=== PATIENT | male | born 1975 | race Caucasian/White ===

== ENCOUNTER 2019-04-11 15:27 | Outpatient (REF) | payer SELFPAY ==
[2019-04-11 17:12] LABS: Estmated Average Glucose 91; Hemoglobin A1C 4.8 % (4.0-6.0)
[2019-04-11 17:49] LABS: Chol HDL Ratio 2.58 mg/dL (1.0-5.00); Cholesterol 129 mg/dL (0-200); Glucose 96 mg/dL (65-115); HDL Cholesterol 50 mg/dL (60-100); LDL Cholesterol Calculated 61 mg/dL (50-129); LDL HDL Ratio 1.22 RATIO (0.00-3.22); Triglycerides 89 mg/dL (0-150)
== END 2019-04-11 15:28 | disposition home or self-care (01) ==
LOC: LAB 15:27
PROVIDERS: Family Provider Internal Medicine; Visit Provider Dermatology
DX: Z13.9 Encounter for screening, unspecified (principal)
CPT/HCPCS: 80061; 82947; 83036

== ENCOUNTER 2021-08-12 08:38 | Outpatient (CLI) | payer OTHER, SELFPAY ==
--- NOTE | 2021-08-12 10:37 | PFTS_ITS ---
Date of Study:08/12/21 Date of Dictation: 08/14/21 MECHANICS: Prebronchodilator forced vital capacity (FVC) is normal . Prebronchodilator forced expiratory volume in one second (FEV1) is normal. FEV1/FVC is normal. There is no postbronchodilator study. FLOW VOLUME LOOP: Normal. LUNG VOLUMES: Total lung capacity (TLC) is normal. Residual volume (RV) is mildly reduced. DIFFUSING CAPACITY FOR CARBON MONOXIDE: Normal. INTERPRETATION: The Pulmonary function tests are normal. MTDD
== END 2021-08-12 08:39 | disposition home or self-care (01) ==
LOC: RT 08:43
PROVIDERS: PCP Family Medicine; Visit Provider Family Medicine
DX: R06.02 Shortness of breath (principal)
CPT/HCPCS: 94010; 94726; 94729

== ENCOUNTER → 2021-10-26 12:46 | Outpatient (BNVA) | payer OTHER, SELFPAY | PROVIDERS: PCP Family Medicine; Visit Provider Podiatrist Foot & Ankle Surgery | DX: M25.371 Other instability, right ankle (principal); M19.171 Post-traumatic osteoarthritis, right ankle and foot; M21.41 Flat foot [pes planus] (acquired), right foot; M20.21 Hallux rigidus, right foot | CPT/HCPCS: 73600; 73630; 99204; 99205 ==

== ENCOUNTER 2021-11-24 18:00 | Emergency (ER) | payer OTHER, SELFPAY ==
[2021-11-24 18:16] VITALS: BP 166/91; PULSE 67; RESP 18; TEMP 36.8; O2SAT 98; BMI 40.4
--- NOTE | 2021-11-24 19:53 | W.ED.EXTPRO ---
HPI - Extremity Problem General: Chief complaint: Extremity Injury, Upper Stated complaint: left hand finger lac Time Seen by Provider: 11/24/21 19:44 History of Present Illness: 46-year-old male patient comes in today with injury to the left index finger. Patient was using a air box tester to cut up some cardboard when it slipped causing him to lacerate the radial side of his left index finger at the PIP joint. Superficial injury noted. Patient has good range of motion of the finger. Bleeding is controlled. Patient reports his tetanus is up-to-date. Associated symptoms: Deny chest pain Review of Systems General: Reports: 10 or more systems reviewed and unremarkable except in HPI and below Card: Denies: chest pain Resp: Denies: dyspnea Musc: Reports: extremity pain Skin/Breast: Reports: new lesions Physical Exam Const: COMMON NORMALS: alert HENMT: COMMON NORMALS: normocephalic HEAD & SCALP: normocephalic Neck/C-Spine: COMMON NORMALS: full ROM Resp: COMMON NORMALS: normal respiratory effort and clear to auscultation bilaterally AUSCULTATION: clear to auscultation bilaterally Cardio: COMMON NORMALS: regular rate and regular rhythm RATE: regular rate RHYTHM: regular rhythm Back/Pelvis: COMMON NORMALS: thoracic and lumbar spine normal to inspection Extremity: LEFT UPPER EXTREMITY: Yes hand & digits (1 cm linear laceration radial side of the PIP joint left index) Left hand and digits: Yes inspection, Yes palpation and Yes ROM Neuro: SENSORIUM/ORIENTATION: Yes alert Skin: TRAUMA: laceration (Index finger left hand) linear Procedures Laceration Laceration 1: Site: hand Side (If applicable): left Size (cm): 1 Pre-repair: wound explored and irrigated extensively Skin layer closed with: other (Skin adhesive, and splint) Course Vital Signs: Vital signs: Vital Signs Temperature 98.3 F 11/24/21 18:16 Pulse Rate 67 11/24/21 18:16 Respiratory Rate 18 11/24/21 18:16 Blood Pressure 166/91 11/24/21 18:16 Pulse Oximetry 98 11/24/21 18:16 Oxygen Delivery Me thod 11/24/21 18:16 MDM - Extremity (Nontraumatic) Medical Decision Making Patient comes in for injury to the left index finger. On exam we note 1 cm laceration to the left index finger. Patient has good range of motion of the finger. Wound is well approximated when finger is straight. Differential diagnosis includes need for prophylaxis tetanus, foreign body, tendon injury, laceration. No sign of foreign body or tendon injury is noted. Patient reported that his tetanus immunization was was up-to-date. Wound was cleaned and approximated and closed with skin adhesive. Patient was then put in a finger splint for protection of the wound. Patient reported understanding of care plan need for follow-up or return to the ER. Discharge Plan Discharge Patient Disposition: Home Clinical Impression: Finger laceration Qualifiers: Encounter type: initial encounter Finger: index finger Damage to nail status: with damage Foreign body presence: without foreign body Laterality: left Qualified Code(s): S61.311A - Laceration without foreign body of left index finger with damage to nail, initial encounter Condition: Stable Prescriptions: No Action albuterol sulfate 90 mcg/actuation HFA aerosol inhaler inhalation cetirizine 10 mg tablet PO bupropion HCl 300 mg tablet extended release 24 hr PO pregabalin 100 mg capsule PO diclofenac sodium 1 % gel topical omeprazole 20 mg capsule,delayed release(DR/EC) PO cyclobenzaprine 10 mg tablet PO Discharge Orders: Discharge ED (Routine); Ordered 11/24/21 Ordered By: Michael Torres Referrals: Antonieta Cesar MD [Primary Care Provider] - Discharge Diet: Usual diet Discharge Activity: Increase activity as tolerated Patient Instructions: Finger Laceration (ED) Activity Restrictions/Additional Instructions: Keep wound clean and dry. It is important to keep the wound as dry as possible for the next 48 hours. After that avoid submerging wound into water for long periods of time. Allow the initial dressing to come off on its own. Change the dressing if it becomes wet or soiled. Use a splint for the next 7 days to allow the wound to heal. Follow-up with primary care for further instruction. Return to ED for new concerns. Coding Level of Care Code ED Color Drum Worker for Renzo Saini
== END 2021-11-24 20:23 | disposition home or self-care (01) ==
PROVIDERS: Emergency Provider Nurse Practitioner Family; PCP Family Medicine
DX: S61.311A Laceration without foreign body of left index finger with damage to nail, initial encounter (principal); W26.0XXA Contact with knife, initial encounter
CPT/HCPCS: 12001; 99282

== ENCOUNTER 2021-11-26 08:28 | Outpatient (CLI) | payer OTHER, SELFPAY ==
--- NOTE | 2021-11-26 08:45 | MR_ITS ---
WS: [id number] MRI RIGHT ANKLE NONCONTRAST TECHNIQUE: Sagittal proton density, sagittal STIR, axial proton density, axial T1, axial T2 fat sat, coronal proton density, coronal proton density fat sat, coronal T2 fat sat. CLINICAL INFORMATION: ankle pain COMPARISON: None. FINDINGS: Distal Achilles is normal in appearance. Small amount of fluid in the retrocalcaneal bursa. Small carlo nt effusion. Small ganglion cyst in the dorsal lateral gutter posterior to the talus. Normal bone mar row signal. No evidence of avascular necrosis. Normal ankle mortise. Tiny well-corticated chronic hellen earing avulsion tip of the medial malleolus. Small amount of tenosynovitis involving the tibialis pos terior, flexor digitorum longus and flexor hallucis longus. Suspected partial tear involving the tibi pb anterior distally. Small amount of associated fluid about the tibialis anterior. Diffuse soft tissue edema involving the subcutaneous soft tissues more prominent in the midfoot. Patc hy bone marrow edema involving the cuboid and cuneiforms. Bone marrow edema involving the 4th and 5th metatarsal bases. Small amount of fluid in the TMT joints. Recommend correlation for trauma with con tusion. Normal bone marrow signal in the calcaneus. Normal peroneus longus and brevis. ATF not visualized likely torn. Tibiofibular ligaments appear inta ct. Mild pes planus. Prominent plantar calcaneal spurring. Talus and subtalar joints appear normal. N o evidence of avascular necrosis. Degenerative arthritis with hypertrophic spurring at the navicular and medial cuneiform articulation. Hypertrophic spurring at the talonavicular articulation and tibial plafond anteriorly. MR/MR ankle RT wo con* [id number] IMPRESSION: 1. Suspected nondisplaced fractures involving the intermediate and lateral cun eiforms with edema. Additional edema in the cuboid. 2. Additional suspected nondisplaced fracture involving the base of the 4th me tatarsal. Small amount of edema in the base of the 5th metatarsal. Above findin gs can be further evaluated with CT for better anatomic detail. 3. Suspected partial tear involving the mid to distal tibialis anterior with e torito and tendon thickening distally. 4. Lobulated ganglion cyst in the posterior lateral gutter posterior to the ta ricardo. Measuring 2.1 x 0.8 cm 5. ATF is not visualized and likely torn. Normal tibiofibular ligaments. 6. Tiny well-corticated avulsion tip of the medial malleolus. 7. Diffuse soft tissue edema involving the dorsal midfoot soft tissues. 8. Small amount of fluid in the retrocalcaneal bursa.. 9. Tenosynovitis involving the flexor compartment tendons.
== END 2021-11-26 08:29 | disposition home or self-care (01) ==
LOC: RAD 08:29
PROVIDERS: PCP Family Medicine; Visit Provider Podiatrist Foot & Ankle Surgery
DX: M25.571 Pain in right ankle and joints of right foot (principal); M25.371 Other instability, right ankle; M19.171 Post-traumatic osteoarthritis, right ankle and foot; M65.871 Other synovitis and tenosynovitis, right ankle and foot; R60.0 Localized edema
CPT/HCPCS: 73721

== ENCOUNTER 2021-11-28 21:56 | Emergency (ER) | payer OTHER, SELFPAY ==
[2021-11-28 22:00] VITALS: BP 135/76; PULSE 77; RESP 18; TEMP 36.8; O2SAT 98; BMI 40.4
--- NOTE | 2021-11-28 22:25 | ED_ITS ---
HPI - Wound/Laceration General: Chief Complaint: Wound/Laceration Stated Complaint: left finger lac Time Seen by Provider: 11/28/21 22:22 History of Present Illness: 46-year-old male patient comes in today for injury to the left index finger. Patient was concerned because he had taken off the dressing and noted that there was blood under the Tegaderm. Patient thought it might need a stitch. Injury occurred on and patient had been seen in the ER and the wound was cleaned and glued with a Tegaderm applied afterwards. Associated symptoms: Denies fever(s) Review of Systems Const: Denies: fever(s) Card: Denies: chest pain Resp: Denies: dyspnea Skin/Breast: Reports: new lesions Physical Exam Const: COMMON NORMALS: alert HENMT: HEAD & SCALP: normal to inspection Resp: COMMON NORMALS: normal respiratory effort Cardio: COMMON NORMALS: regular rate RATE: regular rate Extremity: LEFT UPPER EXTREMITY: Yes hand & digits (Superficial laceration to the dorsal index finger, well approximated) Left hand and digits: Yes inspection (No redness or swelling) Neuro: SENSORIUM/ORIENTATION: Yes alert Skin: TRAUMA: laceration (Healing laceration left index finger) linear Course Vital Signs: Vital signs: Vital Signs Temperature 98.3 F 11/28/21 22:00 Pulse Rate 77 11/28/21 22:00 Respiratory Rate 18 11/28/21 22:00 Blood Pressure 135/76 11/28/21 22:00 Pulse Oximetry 98 11/28/21 22:00 Oxygen Delivery Me thod 11/28/21 22:00 MDM - Wound/Laceration Medical Decision Making 46-year-old male patient comes in for injury to the left index finger. Patient has a superficial wound to left index finger. Dressing was removed and noted that the wound was well approximated. Differential diagnosis wound dehiscence, wound infection, healing wound. After clean wound it was noted that the wound was healing well. Recommended patient continue with routine care, replace dressing and recommended continued use of splint for 1 more week. Patient stated understanding and agreed to plan. Discharge Plan Discharge Patient Disposition: Home Clinical Impression: Finger laceration Qualifiers: Encounter type: subsequent encounter Finger: index finger Damage to nail status: without damage Foreign body presence: without foreign body Laterality: left Qualified Code(s): S61.211D - Laceration without foreign body of left index finger without damage to nail, subsequent encounter Condition: Stable Prescriptions: No Action albuterol sulfate 90 mcg/actuation HFA aerosol inhaler inhalation cetirizine 10 mg tablet PO bupropion HCl 300 mg tablet extended release 24 hr PO pregabalin 100 mg capsule PO diclofenac sodium 1 % gel topical omeprazole 20 mg capsule,delayed release(DR/EC) PO cyclobenzaprine 10 mg tablet PO Discharge Orders: Discharge ED (Routine); Ordered 11/28/21 Ordered By: Michael Torres Referrals: Antonieta Cesar MD [Primary Care Provider] - Discharge Diet: Usual diet Discharge Activity: Increase activity as tolerated Patient Instructions: Finger Laceration (ED) Activity Restrictions/Additional Instructions: Continue with routine care. Keep wound clean and dry. Keep splint in place for at least 1 week. Follow-up with primary care for further instruction. Return to ED for new concerns. Coding Level of Care Code ED Digital Imaging Specialist for Renzo Saini
[2021-11-28 22:47] VITALS: BP 135/76; PULSE 77; RESP 18; TEMP 36.8; O2SAT 98
== END 2021-11-28 22:48 | disposition home or self-care (01) ==
PROVIDERS: Emergency Provider Nurse Practitioner Family; PCP Family Medicine
DX: S61.211A Laceration without foreign body of left index finger without damage to nail, initial encounter (principal); X58.XXXA Exposure to other specified factors, initial encounter
CPT/HCPCS: 99282

== ENCOUNTER 2021-12-06 10:37 | Outpatient (CLI) | payer OTHER, SELFPAY | END 2021-12-06 10:38 | disposition home or self-care (01) | LOC: SPT 10:38 | PROVIDERS: PCP Family Medicine; Visit Provider Podiatrist Foot & Ankle Surgery | DX: Z46.89 Encounter for fitting and adjustment of other specified devices (principal); M20.21 Hallux rigidus, right foot; S92.811D Other fracture of right foot, subsequent encounter for fracture with routine healing; X58.XXXD Exposure to other specified factors, subsequent encounter; M65.9 Synovitis and tenosynovitis, unspecified; M77.51 Other enthesopathy of right foot and ankle | CPT/HCPCS: 97760; 99214; L4361 ==

== ENCOUNTER 2021-12-16 08:30 | Outpatient (CLI) | payer OTHER, SELFPAY ==
--- NOTE | 2021-12-16 08:30 | CT_ITS ---
WS: [id number] CT scan of the right foot. Additional two-dimensional coronal and sagittal reconstruction was perform ed. MIP images were also performed. 12/16/2021 Clinical Data: foot fracture Comparison: MR right ankle, 11/26/2021, right foot, 10/26/2021. DLP: 130.[address] scans at [facility] use at least one of these dose optimization techniques: automated e xposure control; mA and/or kV adjustment per patient size (includes targeted exams where dose is matc hed to clinical indication); or iterative reconstruction. Findings: The tarsal bones appear intact without fracture. Anterior to the talotibial joint is a soft tissue ca lcification which may be from old trauma. There is a minimal spur between the navicular and the first cuneiform which was seen on initial x-ray. The intertarsal articulations are normal. The metatarsals and phalanges are unremarkable. There is a plantar spur. The soft tissues of the foot show no abnorm alities. CT/CT foot RT wo con* [id number] Impression: 1. Negative for fractures of the bones of the foot. 2. Probable osteoarthritic soft tissue calcification anterior to the talotibial joint. 3. Small spur between the navicular and first cuneiform indicating minimal oste oarthritis.
== END 2021-12-16 08:31 | disposition home or self-care (01) ==
LOC: RAD 08:31
PROVIDERS: PCP Family Medicine; Visit Provider Podiatrist Foot & Ankle Surgery
DX: M20.21 Hallux rigidus, right foot (principal)
CPT/HCPCS: 73700

== ENCOUNTER → 2022-01-04 08:22 | Outpatient (BNVA) | payer OTHER, SELFPAY | PROVIDERS: PCP Family Medicine; Visit Provider Podiatrist Foot & Ankle Surgery | DX: R00.2 Palpitations (principal); R60.9 Edema, unspecified; G47.33 Obstructive sleep apnea (adult) (pediatric); Z82.49 Family history of ischemic heart disease and other diseases of the circulatory system | CPT/HCPCS: 99204; 99214 ==

== ENCOUNTER → 2022-03-04 13:10 | Outpatient (BNVA) | payer OTHER, SELFPAY | PROVIDERS: PCP Family Medicine; Visit Provider Podiatrist Foot & Ankle Surgery | DX: S82.51XA Displaced fracture of medial malleolus of right tibia, initial encounter for closed fracture; S92.214A Nondisplaced fracture of cuboid bone of right foot, initial encounter for closed fracture; S92.001A Unspecified fracture of right calcaneus, initial encounter for closed fracture; X58.XXXA Exposure to other specified factors, initial encounter; Y93.52 Activity, horseback riding; S93.491A Sprain of other ligament of right ankle, initial encounter; M65.9 Synovitis and tenosynovitis, unspecified; M77.51 Other enthesopathy of right foot and ankle; M25.371 Other instability, right ankle | CPT/HCPCS: 73630; 99214 ==

== ENCOUNTER 2022-03-30 20:00 | Outpatient (CLI) | payer OTHER, SELFPAY | END 2022-03-30 20:01 | disposition home or self-care (01) | LOC: SLEEP 03-31 06:39 | PROVIDERS: PCP Family Medicine; Visit Provider Family Medicine | DX: G47.33 Obstructive sleep apnea (adult) (pediatric) (principal) | CPT/HCPCS: 95811 ==

== ENCOUNTER → 2022-05-02 15:03 | Outpatient (BNVA) | payer OTHER, SELFPAY | PROVIDERS: PCP Family Medicine; Visit Provider Podiatrist Foot & Ankle Surgery | DX: S82.51XA Displaced fracture of medial malleolus of right tibia, initial encounter for closed fracture (principal); M65.9 Synovitis and tenosynovitis, unspecified; S92.214A Nondisplaced fracture of cuboid bone of right foot, initial encounter for closed fracture; M77.51 Other enthesopathy of right foot and ankle; M25.371 Other instability, right ankle; X58.XXXA Exposure to other specified factors, initial encounter | CPT/HCPCS: 99213 ==

== ENCOUNTER 2022-10-13 12:19 | Emergency (ER) | payer OTHER, SELFPAY ==
[2022-10-13 12:27] VITALS: BMI 47.0
[2022-10-13 12:29] VITALS: BP 152/87; PULSE 74; RESP 16; TEMP 37.1; O2SAT 97
--- NOTE | 2022-10-13 14:04 | ED_ITS ---
HPI - Fall General: Chief Complaint: Fall Stated Complaint: fall / hit head Time Seen by Provider: 10/13/22 13:59 History of Present Illness: Patient presents to the ER for evaluation after falling at work. Patient said he hit his left elbow left shoulder left knee and left side of his head after slipping and falling on the tile floor. Patient denies any loss of consciousness. Patient has good range of motion with all extremities patient is able to walk on the leg. Review of Systems General: Reports: 10 or more systems reviewed and unremarkable except in HPI and below Physical Exam Const: COMMON NORMALS: no acute distress, average body habitus, patient oriented x3, no limitations, healthy appearing, alert and well nourished HENMT: COMMON NORMALS: normocephalic, atraumatic, hearing grossly normal bilaterally, external ears normal, Normal external nose present and moist oral mucous membranes HEAD & SCALP: normocephalic and atraumatic NOSE: Normal external nose present EXTERNAL EAR: Yes external ears normal Eye: COMMON NORMALS: Equal, round and reactive pupils present, EOMs intact bilaterally, conjunctivae normal and no scleral icterus CONJUNCTIVA: Yes conjunctivae normal PUPIL: Yes Equal, round and reactive pupils present Neck/C-Spine: COMMON NORMALS: full ROM, no lymphadenopathy, supple, no meningeal signs and no JVD Chest: COMMONS NORMALS: normal inspection of the chest Resp: COMMON NORMALS: normal respiratory effort, No retractions and No use of accessory muscles Cardio: COMMON NORMALS: no JVD, regular rate and regular rhythm RATE: regular rate RHYTHM: regular rhythm Extremity: NARRATIVE EXTREMITY EXAM: Small abrasion to the left knee. Contusion with mild tenderness to left knee left elbow left shoulder and left head region. No overt crepitus ecchymosis or deformity noted. Neuro: COMMON NORMALS: patient oriented x3 SENSORIUM/ORIENTATION: Yes alert MENINGEAL SIGNS: Yes no meningeal signs Course Vital Signs: Vital signs: Vital Signs Temperature 98.7 F 10/13/22 12:29 Pulse Rate 74 10/13/22 12:29 Respiratory Rate 16 10/13/22 12:29 Blood Pressure 152/87 10/13/22 12:29 Pulse Oximetry 97 10/13/22 12:29 Oxygen Delivery Me thod Room Air 10/13/22 12:29 MDM - Fall Medical Decision Making LeftPatient fell at work and came to the ER to be evaluated. Patient has minimal pain with palpation over the left shoulder and left hand region. Patient did not lose consciousness. Patient be discharged back to work with a diagnosis of abrasion and contusion. Patient should follow-up with his Workmen's Comp. doctor in about a week. Differential Diagnosis Unlikely syncope, dislocation of shoulder region, fracture of wrist, compression fracture, concussion with loss of consciousness or concussion without loss of consciousness Medical Records I reviewed the patient's medical records. Lab Data I reviewed the patient's lab results. Discharge Plan Discharge Patient Disposition: Home Clinical Impression: Contusion, multiple sites Fall Qualifiers: Encounter type: initial encounter Qualified Code(s): W19.XXXA - Unspecified fall, initial encounter Abrasion of knee, left Qualifiers: Encounter type: initial encounter Qualified Code(s): S80.212A - Abrasion, left knee, initial encounter Condition: Stable Prescriptions: No Action albuterol sulfate 90 mcg/actuation HFA aerosol inhaler inhalation cetirizine 10 mg tablet PO bupropion HCl 300 mg tablet extended release 24 hr PO pregabalin 100 mg capsule PO diclofenac sodium 1 % gel topical omeprazole 20 mg capsule,delayed release(DR/EC) PO cyclobenzaprine 10 mg tablet PO (DME) judit mccracken See Rx Instructions .Route .MEDSUPPLY Qty: 1 0RF Rx Instructions: As directed celecoxib [Celebrex] 200 mg capsule 200 mg PO DAILY testosterone cypionate [Depo-Testosterone] 200 mg/mL oil 200 mg SUBCUT .Y5hotel fluoxetine 10 mg capsule 30 mg PO DAILY hydrocodone-acetaminophen 5-325 mg tablet 1 tab PO Q8H PRN (Reason: pain) 7 Days Qty: 21 0RF (DME) 3 Pairs of Compression Socks See Rx Instructions .Route .MEDSUPPLY Qty: 1 0RF Rx Instructions: Circumference of legs Calf: 43 cm ankle: 24 cm Mid foot: 24 cm (DME) AFO to the right with bilateral orthopedic shoes See Rx Instructions .Route .MEDSUPPLY Qty: 1 0RF Rx Instructions: As directed by ISABELLA&O Discharge Orders: Discharge ED (Routine); Ordered 10/13/22 Ordered By: Jeferson Villalpando Referrals: Antonieta Cesar MD [Primary Care Provider] - 1 week Patient Instructions: Abrasion, Contusion Activity Restrictions/Additional Instructions: Please take [id number] Tylenol and/or ibuprofen as needed for pain. Please follow-up with Workmen's Comp. doctor in approximately 1 week for reevaluation. Coding Level of Care Code ED Medical Lab Technologist for Renzo Saini
--- NOTE | 2022-10-13 14:25 | PC.NURSE ---
nurse assumed care at 14:00
[2022-10-13 14:34] VITALS: PULSE 78; O2SAT 97
== END 2022-10-13 14:37 | disposition home or self-care (01) ==
PROVIDERS: Emergency Provider Emergency Medicine; PCP Family Medicine
DX: S80.212A Abrasion, left knee, initial encounter (principal); S80.02XA Contusion of left knee, initial encounter; S50.02XA Contusion of left elbow, initial encounter; S40.012A Contusion of left shoulder, initial encounter; S00.93XA Contusion of unspecified part of head, initial encounter; W01.0XXA Fall on same level from slipping, tripping and stumbling without subsequent striking against object, initial encounter; Y99.0 Civilian activity done for income or pay
CPT/HCPCS: 99282

== ENCOUNTER 2022-12-14 16:44 | Outpatient (CLI) | payer OTHER, SELFPAY ==
--- NOTE | 2022-12-14 16:59 | MR_ITS ---
WS: [id number] MRI LUMBAR SPINE NONCONTRAST HISTORY: Central pain syndrome, pain down LEFT leg. COMPARISON: None available. TECHNIQUE: Sagittal and axial multisequence imaging is submitted. Osteophyte and/or disc encroachment upon the cervical canal at C5-6. Mild stenosis. Normal posterior alignment. There is very slight anterior wedging and loss of height involving the humphreys perior endplate at L1. No marrow edema. Disc spaces and vertebral body heights are well-preserved. Conus terminates normally at L1-2 disc level. L1-L2: Minimal disc bulging. No stenosis. L2-L3: Mild annular disc bulging. Disc does contact the traversing L3 nerve roots. Very mild subartic ular recess encroachment. Very mild RIGHT foramen stenosis. There does appear to be a small RIGHT for aminal disc protrusion. L3-L4: Mild annular disc bulging with mild ligamentum flavum and facet arthritis. Mild disc encroachm ent upon the subarticular recesses and the traversing L4 nerve roots. Mild RIGHT and moderate LEFT fo ramen stenosis. There may be a small disc component in the LEFT foramen contacting the exiting LEFT L 3 nerve root. L4-L5: Mild annular disc bulging. Disc contacts but does not displace the traversing L5 nerve roots. Mild bilateral subarticular recess stenosis and foraminal stenosis. L5-S1: Mild asymmetric disc bulging. Disc osteophyte RIGHT foramen. Mild LEFT and moderate RIGHT fora gina stenosis. IMPRESSION: 1. No acute lumbar spine fracture. 2. Very minimal anterior wedging of L1. 3. Subarticular recess encroachment from L2-3 through L4-5 by bulging disc. 4. L3-4: Moderate LEFT foraminal stenosis. There may be a small disc component in the LEFT foramen co ntacting the exiting LEFT L3 nerve root. Mild RIGHT foramen stenosis. 5. L4-5: Mild bilateral subarticular recess and foraminal stenosis. 6. L5-S1 disc osteophyte RIGHT foramen with moderate stenosis. Mild stenosis on the LEFT.
== END 2022-12-14 16:45 | disposition home or self-care (01) ==
LOC: RAD 16:45
PROVIDERS: PCP Family Medicine; Visit Provider General Practice
DX: G89.0 Central pain syndrome (principal); M79.605 Pain in left leg; M48.56XA Collapsed vertebra, not elsewhere classified, lumbar region, initial encounter for fracture; M51.36 Other intervertebral disc degeneration, lumbar region; M48.07 Spinal stenosis, lumbosacral region
CPT/HCPCS: 72148

== ENCOUNTER 2023-05-30 20:00 | Outpatient (CLI) | payer OTHER, SELFPAY | END 2023-05-30 20:01 | disposition home or self-care (01) | LOC: SLEEP 05-31 05:44 | PROVIDERS: PCP Family Medicine; Visit Provider Chiropractor | DX: G47.33 Obstructive sleep apnea (adult) (pediatric) (principal) | CPT/HCPCS: 95810 ==

== ENCOUNTER → 2023-07-19 09:17 | Outpatient (BNVA) | payer OTHER, SELFPAY | PROVIDERS: PCP Family Medicine; Referring Provider Nurse Practitioner; Visit Provider Surgery | DX: Z12.11 Encounter for screening for malignant neoplasm of colon (principal) | CPT/HCPCS: 99203 ==

== ENCOUNTER → 2023-09-14 08:13 | Outpatient (BNVA) | payer OTHER, SELFPAY | PROVIDERS: PCP Family Medicine; Visit Provider Internal Medicine | DX: Z98.84 Bariatric surgery status (principal); Z82.49 Family history of ischemic heart disease and other diseases of the circulatory system; E11.9 Type 2 diabetes mellitus without complications; E78.2 Mixed hyperlipidemia; R63.5 Abnormal weight gain; Z68.42 Body mass index [BMI] 45.0-49.9, adult; Z79.84 Long term (current) use of oral hypoglycemic drugs | CPT/HCPCS: 99204 ==

== ENCOUNTER 2023-10-10 07:29 | Day surgery (SDC) | payer OTHER, SELFPAY ==
--- NOTE | 2023-10-10 07:36 | W.PM.OPSFHP ---
Same Day Surgery H&P Indication for Procedure/HPI DATE OF PROCEDURE: October 10, 2023 CHIEF COMPLAINT/INDICATIONFOR SURGICAL PROCEDURE: need for screening colonoscopy PREOP DIAGNOSIS: need for screening colonoscopy PLANNED PROCEDURE: Operation Date: 10/10/23 08:20 Proposed Procedures p Colonoscopy 44037, G0105, Z12.11(Not Applicable) - Georgi Michel MD Medications/Allergies* Home Medications Medication Instructions Recorded Confirmed Type albuterol sulfate 90 mcg/actuation 2 puff inhalation PRN PRN sob 10/26/21 10/05/23 History aerosol inhaler bupropion HCl 300 mg 24 hr tablet, 300 mg PO DAILY 10/26/21 10/05/23 History extended release cyclobenzaprine 10 mg tablet 10 mg PO DAILY 10/26/21 10/05/23 History diclofenac sodium 1 % topical gel 1 g topical DAILY 10/26/21 10/05/23 History omeprazole 20 mg capsule,delayed 20 mg PO DAILY 10/26/21 10/05/23 History release pregabalin 100 mg capsule 100 mg PO DAILY 10/26/21 10/05/23 History celecoxib 200 mg capsule (Celebrex) 200 mg PO DAILY 01/04/22 10/05/23 History fluoxetine 10 mg capsule 30 mg PO DAILY 01/04/22 10/05/23 History testosterone cypionate 200 mg/mL 200 mg SUBCUT .[id number] 01/04/22 10/05/23 History intramuscular oil (Depo-Testosterone) montelukast 10 mg tablet 10 mg PO DAILY 10/05/23 10/05/23 History Allergies/Adverse Reactions Allergy/AdvReac Type Severity Reaction Status Date / Time No Known Allergies Allergy Verified 09/14/23 07:40 Pertinent History/Comorbid Conditions* Surgical History (Updated 09/14/23 @ 08:36 by Terrie Sanches MD) Hx of gastric bypass Family History (Updated 07/19/23 @ 09:31 by Rosemarie Sparks MA) Father, Colon cancer Colon cancer Father, Onset Age: 62 Social History Smoking and tobacco/nicotine status: never used tobacco/nicotine Pertinent Exam Findings alert, oriented x 3 and clear to auscultation bilaterally Recommendations Surgery/Procedure today Coding Level of Care Code Acute Code for Chg Fwd
[2023-10-10 07:39] VITALS: BP 136/87; PULSE 93; RESP 16; TEMP 36.1; O2SAT 96; BMI 46.0
[2023-10-10] MEDS: sodium chloride 0.9% 1,000 ML 30 ML IV (07:52)
--- NOTE | 2023-10-10 07:53 | ANES.PREANE2 ---
Pre-Anesthetic Assessment Height/Weight: Height 1.8 m Weight 149.685 kg Temp Pulse Resp BP Pulse Ox O2 Del Method 97.0 F L 93 16 136/87 96 Room Air 10/10/23 07:39 10/10/23 07:39 10/10/23 07:39 10/10/23 07:39 10/10/23 07:39 10/10/23 07:39 Preop Diagnosis: need for screening colonoscopy Operation Date: 10/10/23 08:20 Proposed Procedures p Colonoscopy 88412, G0105, Z12.11(Not Applicable) - Georgi Michel MD Familial anesthetic complications: None Was Beta Emmie taken within 24 hours: N/A Was Clonidine taken within 24 hours: N/A Last intake: Intake Last Liquid Date 10/09/23 Last Liquid Time 23:00 Last Solid Date 10/08/23 Last Solid Time 18:00 Social No alcohol and No tobacco Exam alert, oriented x 3, clear to auscultation bilaterally and regular rate & rhythm Airway Mallampati: Class III Dentition: other (missing) Pulmonary Asthma and Sleep Apnea CV/HEM Hypertension 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, able to achieve 4 METS GI Gastroesophageal Reflux Disease gastric sleeve Metabolic Diabetes Mellitus Anesthetic Plan ASA status: 3 Anesthesia: MAC Risk of > 500 ml blood loss (7ml/kg in children): No Medications/Allergies Home Medications Medication Instructions Recorded Confirmed Last Taken Type albuterol sulfate 90 mcg/actuation 2 puff inhalation PRN PRN sob 10/26/21 10/10/23 Unknown History aerosol inhaler bupropion HCl 300 mg 24 hr tablet, 300 mg PO DAILY 10/26/21 10/10/23 10/08/23 History extended release cyclobenzaprine 10 mg tablet 10 mg PO DAILY 10/26/21 10/10/23 10/08/23 History diclofenac sodium 1 % topical gel 1 g topical DAILY 10/26/21 10/10/23 10/05/23 History omeprazole 20 mg capsule,delayed 20 mg PO DAILY 10/26/21 10/10/23 10/08/23 History release pregabalin 100 mg capsule 100 mg PO DAILY 10/26/21 10/10/23 10/08/23 History judit mccracken #1 ea 12/06/21 09/14/23 Unknown Rx celecoxib 200 mg capsule (Celebrex) 200 mg PO DAILY 01/04/22 10/10/23 10/08/23 History fluoxetine 10 mg capsule 30 mg PO DAILY 01/04/22 10/10/23 10/08/23 History testosterone cypionate 200 mg/mL 200 mg SUBCUT .[id number] 01/04/22 10/10/23 1 Week Ago History intramuscular oil ~09/28/23 (Depo-Testosterone) 3 Pairs of Compression Socks #1 ea 02/18/22 09/14/23 Unknown Rx AFO to the right with bilateral #1 ea 03/16/22 09/14/23 Unknown Rx orthopedic shoes tirzepatide 2.5 mg/0.5 mL 2.5 mg (0.5 mL) SUBCUT Q7D 1 month 09/14/23 10/10/23 09/29/23 Rx subcutaneous pen injector #2.5 mL (Mounjaro) tirzepatide 5 mg/0.5 mL 5 mg (0.5 mL) SUBCUT Q7D 1 month 09/14/23 10/10/23 Unknown Rx subcutaneous pen injector #2 mL (Mounjaro) tirzepatide 7.5 mg/0.5 mL 7.5 mg (0.5 mL) SUBCUT Q7D #2 mL 09/14/23 10/09/23 Unknown Rx subcutaneous pen injector (Mounjaro) montelukast 10 mg tablet 10 mg PO DAILY 10/05/23 10/10/23 10/08/23 History Allergies Allergy/AdvReac Type Severity Reaction Status Date / Time No Known Allergies Allergy Verified 09/14/23 07:40 Current Medications Generic Name Dose Route Start Last Admin Trade Name Freq PRN Reason Stop Dose Admin Sodium Chloride 1,000 mls @ 30 mls/hr 10/10/23 07:45 10/10/23 07:52 Sodium Chloride 0.9% IV 30 mls/hr .Q24H MAE Administration PFSH Anesthesia Surgical History Hx of gastric bypass Family History Father , Colon cancer Colon cancer, Onset Age: 62 Social History Smoking and tobacco/nicotine status: never used tobacco/nicotine Data Anesthesia Cardiac Studies: No Data to Display
[2023-10-10 07:56] LABS: Glucose Point of Care 138 mg/dL (70-110)
[2023-10-10 08:41] VITALS: BP 97/69; PULSE 94; RESP 20; TEMP 36.4; O2SAT 93
[2023-10-10 08:50] VITALS: BP 81/53; PULSE 84; RESP 20; O2SAT 95
[2023-10-10 09:00] VITALS: BP 137/70; PULSE 75; RESP 20; O2SAT 97
--- NOTE | 2023-10-10 09:15 | ANE.PACU2 ---
Inpatient post-anesthesia follow up: Airway intact: Yes Vital signs: Temperature 97.5 F Pulse Rate 75 Respiratory Rate 20 Blood Pressure 137/70 Pulse Oximetry 97 Oxygen Delivery Me thod Room Air Oxygen Flow Rate Fraction of Inspir ed Oxygen Hydration adequate: Yes Nausea and vomiting: No Pain level: 1 Mental status: Baseline
== END 2023-10-10 09:17 | disposition home or self-care (01) ==
PROVIDERS: PCP Nurse Practitioner; Visit Provider Surgery
PROC: 0DJD8ZZ Inspection of Lower Intestinal Tract, Via Natural or Artificial Opening Endoscopic (ICD-10-PCS; CPT 45378; principal; 2023-10-10 08:20)
DX: Z12.11 Encounter for screening for malignant neoplasm of colon (principal); K57.30 Diverticulosis of large intestine without perforation or abscess without bleeding; D12.5 Benign neoplasm of sigmoid colon; D12.8 Benign neoplasm of rectum; Z98.84 Bariatric surgery status; G47.30 Sleep apnea, unspecified; I10 Essential (primary) hypertension; K21.9 Gastro-esophageal reflux disease without esophagitis; E11.9 Type 2 diabetes mellitus without complications
CPT/HCPCS: 36416; 45380; 82962; 88305; J2704; J7030

== ENCOUNTER → 2024-02-20 08:09 | Outpatient (BNVA) | payer OTHER, SELFPAY | PROVIDERS: PCP Nurse Practitioner; Visit Provider Internal Medicine | DX: Z98.84 Bariatric surgery status (principal); Z82.49 Family history of ischemic heart disease and other diseases of the circulatory system; E11.9 Type 2 diabetes mellitus without complications; E78.2 Mixed hyperlipidemia; R63.5 Abnormal weight gain | CPT/HCPCS: 99214 ==

== ENCOUNTER 2024-05-14 12:03 | Outpatient (CLI) | payer OTHER, SELFPAY ==
[2024-05-14 12:50] LABS: Estmated Average Glucose 97
[2024-05-14 13:02] LABS: Alanine Aminotransferase 27 U/L (0-41); Albumin Level 4.5 g/dL (3.5-5.2); Alkaline Phosphatase 79 U/L (40-130); Anion Gap 13.5 (5-19); Aspartate Amino Transferase 22 U/L (0-40); Blood Urea Nitrogen 6 mg/dL (6-20); Calcium 9.2 mg/dL (8.5-10.5); Carbon Dioxide 28 mmol/L (22-29); Chloride 103 mmol/L (98-107); Chol HDL Ratio 2.17 mg/dL (1.0-5.00); Cholesterol 76 mg/dL (0-200); Globulin 3.4 g/dL (1.3-4.6); Glucose 88 mg/dL (65-115); HDL Cholesterol 35 mg/dL (60-100); LDL Cholesterol Calculated 28 mg/dL (50-129); Osmolality Calculated 287 mOsm/kg (285-295); Potassium 4.5 mmol/L (3.5-5.1); Sodium 140 mmol/L (136-145); Total Bilirubin 0.5 mg/dL (0.15-1.2); Total Protein 7.9 g/dL (6.6-8.7); Triglycerides 67 mg/dL (0-150)
[2024-05-14 13:03] LABS: Creatinine Urine, Random 419 mg/dL (39-259); Microalbum Creatinine Ratio Ur 12 mg/dL (0-20); Microalbumin Random Urine 5 ug/dL (0-20)
== END 2024-05-14 12:04 | disposition home or self-care (01) ==
PROVIDERS: PCP Nurse Practitioner; Visit Provider Internal Medicine
DX: E11.9 Type 2 diabetes mellitus without complications (principal); E78.2 Mixed hyperlipidemia
CPT/HCPCS: 80053; 80061; 82044; 83036

== ENCOUNTER → 2024-05-22 08:11 | Outpatient (BNVA) | payer OTHER, SELFPAY | PROVIDERS: PCP Nurse Practitioner; Visit Provider Internal Medicine | DX: E11.9 Type 2 diabetes mellitus without complications (principal); Z98.84 Bariatric surgery status; Z82.49 Family history of ischemic heart disease and other diseases of the circulatory system; E78.2 Mixed hyperlipidemia; R63.5 Abnormal weight gain | CPT/HCPCS: 99214 ==

== ENCOUNTER 2024-10-31 14:14 | Outpatient (CLI) | payer OTHER, SELFPAY ==
--- NOTE | 2024-10-31 14:17 | MR_ITS ---
WS: [id number] MRI HEAD WITH CONTRAST TECHNIQUE: Sagittal T1, T2 axial, T2 axial FLAIR, axial susceptibility weighted imaging, axial diffusion weighted images, and coronal T2 images were obtained. Pre and post-T1 axial and post T1 coronal images. ADC and FSPGR images. CLINICAL INFORMATION: INCREASE CHANGE IN MIGRAINE FREQUENCY TO DAILY W/NAUSEA COMPARISON: None. FINDINGS: No evidence of restricted diffusion to suggest acute ischemia. No suspicious intracranial signal abnormalities. Normal vascular flow voids at the skull base. No extra-axial fluid collections. Paranasal sinuses are well aerated. Partial opacification RIGHT mastoid air cells. No hemosiderin on the susceptibly weighted images. No abnormal gadolinium enhancement. No other acute findings. MR/MR head wo/w con [id number] IMPRESSION: 1. No evidence of restricted diffusion to suggest acute ischemia. 2. No suspicious intracranial signal normalities. 3. Partial opacification RIGHT mastoid air cells. 4. No hemosiderin on the susceptibility weighted images. 5. No abnormal gadolinium enhancement.
[2024-10-31] MEDS: gadobenate dimeglumine 20 mL vial IV (14:53)
== END 2024-10-31 14:15 | disposition home or self-care (01) ==
LOC: RAD 14:14
PROVIDERS: PCP Nurse Practitioner; Visit Provider Nurse Practitioner
DX: G43.909 Migraine, unspecified, not intractable, without status migrainosus (principal); R11.0 Nausea; H70.091 Acute mastoiditis with other complications, right ear
CPT/HCPCS: 70553

== ENCOUNTER 2024-11-18 16:34 | Outpatient (CLI) | payer OTHER, SELFPAY ==
[2024-11-18 18:13] LABS: Creatinine Urine, Random 387 mg/dL (39-259); Microalbum Creatinine Ratio Ur 5 mg/dL (0-20)
[2024-11-18 18:33] LABS: Estmated Average Glucose 91; Hemoglobin A1C 4.8 % (4.0-6.0)
[2024-11-18 19:24] LABS: Alanine Aminotransferase 21 U/L (0-41); Albumin Level 4.6 g/dL (3.5-5.2); Alkaline Phosphatase 63 U/L (40-130); Anion Gap 17.9 (5-19); Aspartate Amino Transferase 20 U/L (0-40); Blood Urea Nitrogen 18 mg/dL (6-20); Calcium 9.4 mg/dL (8.5-10.5); Carbon Dioxide 23 mmol/L (22-29); Chloride 101 mmol/L (98-107); Cholesterol 133 mg/dL (0-200); Globulin 3.4 g/dL (1.3-4.6); Glucose 81 mg/dL (65-115); HDL Cholesterol 37 mg/dL (60-100); Osmolality Calculated 287 mOsm/kg (285-295); Potassium 3.9 mmol/L (3.5-5.1); Sodium 138 mmol/L (136-145); Total Protein 8.0 g/dL (6.6-8.7); Triglycerides 93 mg/dL (0-150)
== END 2024-11-18 16:35 | disposition home or self-care (01) ==
LOC: LAB 16:36
PROVIDERS: PCP Nurse Practitioner; Visit Provider Internal Medicine
DX: Z98.84 Bariatric surgery status (principal); Z82.49 Family history of ischemic heart disease and other diseases of the circulatory system; E11.9 Type 2 diabetes mellitus without complications; E78.2 Mixed hyperlipidemia; R63.5 Abnormal weight gain
CPT/HCPCS: 36415; 80053; 80061; 82044; 83036

== ENCOUNTER → 2024-11-20 08:05 | Outpatient (BNVA) | payer OTHER, SELFPAY | PROVIDERS: PCP Nurse Practitioner; Visit Provider Internal Medicine | DX: Z98.84 Bariatric surgery status (principal); Z82.49 Family history of ischemic heart disease and other diseases of the circulatory system; E11.9 Type 2 diabetes mellitus without complications; E78.2 Mixed hyperlipidemia; R63.5 Abnormal weight gain; Z79.85 Long-term (current) use of injectable non-insulin antidiabetic drugs | CPT/HCPCS: 99214 ==